=== PATIENT | female | born 1970 | race Caucasian/White ===

== ENCOUNTER 2019-01-13 16:03 | Emergency (ER) | payer SELFPAY ==
[~2019-01-13 16:03] MED LIST: Iopamidol 370 76% 100 ML VIAL ONE
[2019-01-13 18:21] LABS: #Basophils 0.1 thou/uL (0.0-0.2); #Eosinphils 0.2 thou/uL (0.0-0.7); #Lymphocytes 2.1 thou/uL (1.20-3.40); #Monocytes 0.8 thou/uL (0.11-0.59); #Neutrophils 4.4 thou/uL (1.40-6.50); %Basophils 0.9 % (0.0-1.0); %Eosinophils 3.2 % (0.0-10.0); %Lymphocytes 28.4 % (21.0-51.0); %Monocytes 9.9 % (0.0-10.0); %Neutrophils 57.6 % (42.0-75.0); Hemoglobin 14.7 g/dL (12.0-16.0); Mean Corpuscular HGB CONC 33.1 g/dL (32.0-36.0); Mean Corpuscular Volume 96.8 fL (78.0-98.0); Mean Platelet Volume 8.6 fL (7.4-10.4); Platelet Count 237 thou/uL (130-400); RBC Distribution Width 11.5 % (11.5-14.5); Red Blood Cell (RBC) Count 4.58 mill/uL (4.20-5.40); White Blood Cell (WBC) Count 7.5 thou/uL (4.8-10.8)
[2019-01-13 18:34] LABS: BHCG - Serum Negative (NEGATIVE); Pregs Control Background? CLEAR/WHITE (CLR/WHITE); Pregs Control Bar Appear? YES (CONTROL BAR)
[2019-01-13 18:39] LABS: ALT (SGPT) 10 U/L (8-55); AST (SGOT) 10 U/L (5-34); Albumin 3.8 g/dL (3.5-5.0); Alkaline Phosphatase 86 U/L (40-150); Anion Gap 14 mmol/L (10-20); BUN (Urea Nitrogen) 8 mg/dL (7.0-18.7); Bilirubin, Total 0.5 mg/dL (0.2-1.2); Calc. Creatinine Clearance 0 mL/min (70-130); Calcium 8.5 mg/dL (7.8-10.44); Carbon Dioxide 22 mmol/L (22-29); Chloride 103 mmol/L (98-107); Estimated GFR-MDRD 83; Globulin 3.1 g/dL (2.4-3.5); Glucose 169 mg/dL (70-105); Lipase 32 U/L (8-78); Potassium 3.4 mmol/L (3.5-5.1); Protein, Total 6.9 g/dL (6.0-8.3); Sodium 136 mmol/L (136-145)
[2019-01-13 19:08] LABS: Bilirubin Small (Negative); Blood, Urine Large (Negative); Clarity Clear (Clear); Glucose, Urine (Dipstick) Negative (Negative); Leukocyte Negative (Negative); Nitrite Negative (Negative); Protein, Urine (Dipstick) 30 mg/dL (Neg-Trace); Specific Gravity, Urine 1.025 (1.005-1.030); Urobilinogen 0.2 mg/dL (0.2-1.0)
[2019-01-13 19:12] LABS: Bacteria/HPF Rare-Few HPF (None Seen); WBC/HPF 0-3 HPF (0-3)
[2019-01-13] MEDS ORDERED: Morphine 4 MG/ML VIAL ONE ×2 (19:45→21:08)
[2019-01-13] MEDS ORDERED: Ondansetron PF 4 MG/2 ML Vial ONE (19:45)
--- NOTE | 2019-01-13 21:05 | CT ---
CT ABDOMEN AND PELVIS WITH CONTRAST: Date: 01/13/19 INDICATION: Abdominal pain. COMPARISON: CT abdomen and pelvis dated 08/09/13. FINDINGS: Lung bases clear. Liver, spleen, and pancreas are unremarkable. Post cholecystectomy changes. Adrenal glands normal. Kidneys unremarkable. The fatty dense lesion along the lateral left renal cortex is stable consistent with angiomyolipoma. No evidence of hydronephrosis or urinary calculus. Urinary bladder is contracte d and not well evaluated. Small bowel loops are normal caliber. Appendix appears normal. Colon unremarkable with scattered dive rticula noted. Images through the pelvis show a prominent uterus and prominent endometrium. The uterus is heterogene ous suggesting fibroids within the myometrium. There is a 2.5 cm right ovarian cyst. Aorta normal brennon iber. Nonspecific periaortic lymph nodes. IMPRESSION: 1. Prominent heterogeneous uterus with heterogeneity in the myometrium suggesting fibroids. The endo metrium appears prominent. 2. Right ovarian cyst. 3. Angiomyolipoma left kidney again noted. 4. Mild diverticulosis of the left colon and sigmoid without definite CT evidence of diverticulitis. POS: [facility]
[2019-01-13] MEDS ORDERED: Lidocaine Viscous Sol 2% 15 ml UD Cup ONE (21:20)
[2019-01-13] MEDS ORDERED: Mag-Al Plus 1200 MG/1200 MG/120 MG/30 ML UDCUP ONE (21:20)
== END 2019-01-13 21:59 | disposition home or self-care (01) ==
LOC: MADERS 16:03
DX: D25.9 Leiomyoma of uterus, unspecified (principal); R19.7 Diarrhea, unspecified; N83.201 Unspecified ovarian cyst, right side; F17.210 Nicotine dependence, cigarettes, uncomplicated; K21.9 Gastro-esophageal reflux disease without esophagitis; Z79.51 Long term (current) use of inhaled steroids; Z79.899 Other long term (current) drug therapy
CPT/HCPCS: 36415; 74177; 80053; 81003; 81015; 83605; 83690; 84703; 85025; 93005; 96374; 96375; 96376; J2270; J2405; Q9967